=== PATIENT | female | born 1990 | race Two or more races ===

== ENCOUNTER 2018-08-09 10:11 | Emergency (ER) | payer OTHER ==
[~2018-08-09] VITALS: Ht 152.4 cm; Wt 46.3 kg
[2018-08-09] MEDS ORDERED: INTESTINEX680 M1 PO (14:38)
[2018-08-09] MEDS ORDERED: ZITHROMAX200 MG PO (14:38)
== END 2018-08-09 15:35 | disposition home or self-care (01) ==
LOC: ER 10:11
DX: B34.9 Viral infection, unspecified (principal)

== ENCOUNTER 2020-06-02 14:26 | Emergency (ER) | payer OTHER ==
[~2020-06-02] VITALS: Ht 149.9 cm; Wt 45.4 kg
[~2020-06-02 14:26] MED LIST: INTESTINEX680 M1 PO; ZITHROMAX200 MG PO
[2020-06-02] MEDS ORDERED: ONDANSETRON HCL4 MG PO (19:02)
[2020-06-02] MEDS ORDERED: INTESTINEX680 M2 PO (19:02)
== END 2020-06-02 19:26 | disposition home or self-care (01) ==
LOC: ER 14:26
DX: O21.0 Mild hyperemesis gravidarum (principal); Z03.818 Encounter for observation for suspected exposure to other biological agents ruled out; Z3A.08 8 weeks gestation of pregnancy

== ENCOUNTER 2020-06-09 15:14 | Emergency (ER) | payer OTHER ==
[~2020-06-09] VITALS: Ht 149.9 cm; Wt 45.4 kg
[~2020-06-09 15:14] MED LIST changes: +INTESTINEX680 M2 PO; +ONDANSETRON HCL4 MG PO
[2020-06-09] MEDS ORDERED: PRENATABS RX T1 EACH PO (15:50)
== END 2020-06-09 19:46 | disposition home or self-care (01) ==
LOC: ER 15:14
DX: O16.1 Unspecified maternal hypertension, first trimester (principal); Z3A.11 11 weeks gestation of pregnancy